=== PATIENT | female | born 1965 | race African-American/Black ===

== ENCOUNTER → 2016-11-21 | Outpatient (CLI) | payer BC ==
[~2016-11-21] MED LIST: BCPILLS
[2016-11-21 18:35] LABS: URINE APPEARANCE CLEAR (CLEAR); URINE BILIRUBIN NEG (NEG); URINE COLOR YELLOW; URINE NITRITE NEG (NEG); URINE PH 5.5 (4.5-7.5); URINE SPECIFIC GRAVITY 1.007 (1.000-1.030); UROBILINOGEN NEG (NEG)
[2016-11-21 18:37] LABS: MANUAL MICROSCOPIC REQUIRED? NO; REVIEW REQ? NO
== END | disposition home or self-care (01) ==
LOC: C.LABSPEC 17:49
PROVIDERS: ATTEND Physician Assistant
DX: R30.9 Painful micturition, unspecified (principal); N89.8 Other specified noninflammatory disorders of vagina

== ENCOUNTER → 2016-12-19 | Outpatient (CLI) | payer BC | END | disposition home or self-care (01) | LOC: C.PAPS 11:02 | PROVIDERS: ATTEND Physician Assistant | DX: Z01.419 Encounter for gynecological examination (general) (routine) without abnormal findings (principal) ==

== ENCOUNTER → 2016-12-19 | Outpatient (CLI) | payer BC ==
[2016-12-19 18:19] LABS: URINE APPEARANCE CLEAR (CLEAR); URINE BILIRUBIN NEG (NEG); URINE COLOR YELLOW; URINE NITRITE POS (NEG); URINE SPECIFIC GRAVITY 1.021 (1.000-1.030); UROBILINOGEN NEG (NEG)
[2016-12-19 18:21] LABS: MANUAL MICROSCOPIC REQUIRED? NO; REVIEW REQ? NO
== END | disposition home or self-care (01) ==
LOC: C.LABSPEC 17:56
PROVIDERS: ATTEND Physician Assistant
DX: R39.9 Unspecified symptoms and signs involving the genitourinary system (principal)

== ENCOUNTER → 2017-01-31 | Outpatient (CLI) | payer BC ==
[2017-02-03 08:33] LABS: CHLAMYDIA TRACH RNA*** NOT DETECTED (NOT DETECTED); GC (NEIS GONORRHOEAE)RNA** NOT DETECTED (NOT DETECTED)
== END | disposition home or self-care (01) ==
LOC: C.LABSPEC 14:03
PROVIDERS: ATTEND Obstetrics & Gynecology
DX: Z30.430 Encounter for insertion of intrauterine contraceptive device (principal)

== ENCOUNTER → 2017-08-13 | Outpatient (CLI) | payer BC | END | disposition home or self-care (01) | LOC: C.RDSM 10:12 | PROVIDERS: ATTEND Physical Medicine & Rehabilitation | DX: M25.551 Pain in right hip (principal) ==

== ENCOUNTER → 2017-12-23 | Outpatient (CLI) | payer OTHER ==
--- NOTE | 2017-12-23 13:57 | DIAGNOSTIC IMAGING REPORT ---
ULTRASOUND RIGHT CALF NONVASCULAR CLINICAL HISTORY: Palpable lump in the back of the calf. COMPARISON STUDY: No priors. FINDINGS: Real-time, grayscale, and color flow sonography of the soft tissues of the right posterior mid calf is performed at the indicated site of interest. There is a tiny complex structure identified at this site which measures 1.5 x 0.6 x 1.4 cm. A cystic focus within this region measures up to 5 mm. No internal flow is shown on color imaging. IMPRESSION: There is indeterminant 1.5 cm complex structure identified at the site of interest, which may represent a small resolving hematoma. Clinical follow-up to resolution is recommended. If this fails to resolve over a reasonable time course consider repeat ultrasound for reassessment. Electronically signed by: Emmanuel Tapia M.D. 12/23/2017 1:56 PM Dictated Date/Time: 12/23/2017 1:54 PM
== END | disposition home or self-care (01) ==
LOC: C.ULTR 12:18
PROVIDERS: ATTEND Family Medicine
DX: R22.9 Localized swelling, mass and lump, unspecified (principal)